=== PATIENT | male | born 1985 | race Native Hawaiian/Other Pacific Islander ===

== ENCOUNTER 2023-08-02 10:05 | Outpatient (AMB) | payer OTHER, SELFPAY ==
--- NOTE | 2023-08-02 10:07 | A.OFFPC_ITS ---
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 Intake Note: Pt is here to est care Allergies penicillin V Allergy (Unknown, Verified 08/02/23 10:28) Unknown Penicillins [PENICILLINS] Allergy (Unknown, Unverified 08/02/23 10:28) ANAPHYLAXIS bees Allergy (Unknown, Uncoded 08/02/23 10:12) Anaphylaxis Medication List - Last Reconciled 08/02/23 by JAZ Mckinley No Known Home Meds Tobacco use date assessed: 08/02/23 Dental Screening Dental Screen Date: 08/02/23 Did you have a dental visit in the last 12 months?: No Did you have a dental problem in the last 6 months where you did not have access to dental care?: No Was dental information given to patient?: No HPI HPI Comments History of Present Illness Details Patient is a 38-year-old male who I am meeting for the 1st time in for a physical exam. He has a past medical history significant for reactive airway disease, in seasonal allergies. The patient states he has not seen a primary care provider in over 7 years. He is unsure if he is up-to-date on his tetanus booster, will try to obtain records from previous office visits. Will order fasting labs. Patient has a chief complaint of fungal infection on his bilateral feet. Has not tried any medication for this. He has tried using non medicated lotion. He states this problem started about 6 months prior and has gotten progressively worse over time, his main concern is itchiness. Denies bleeding, numbness or tingling. PFSH Family History (Updated 08/02/23 @ 10:40 by JAZ Mckinley) Mother Myocardial infarction Social History Housing: Apartment Patient Tobacco Use Status: Never used Tobacco e-Cigarette/Vaping Use: Currently Using (sometimes ) Second Hand Smoke Exposure: No service: No Current occupational status: unemployed Vision needs: Yes Questionnaire PHQ-9 Over the last 2 weeks, how often have you been bothered by any of the following problems? 1. Little interest or pleasure in doing things: not at all 2. Feeling down, depressed, or hopeless: not at all 3. Trouble falling or staying asleep, or sleeping too much: several days 4. Feeling tired or having little energy: several days 5. Poor appetite or overeating: not at all 6. Feeling bad about yourself - or that you are a failure or have let yourself or your family down: several days 7. Trouble concentrating on things, such as reading the newspaper or watching television: not at all 8. Moving or speaking so slowly that other people could have noticed. Or the opposite - being so fidgety or restless that you have been moving around a lot more than usual: not at all 9. Thoughts that you would be better off or of hurting yourself in some way: not at all Total score: 3 Depression Screening Interpretation: Negative Depression Screening Done: Yes 42720 - PHQ-9 Billing: Yes Source: Developed by Drs. Walker Patel, Beverly Welch, Sebastián Hines and colleagues, with an educational fredo from [employer]. Thrive Questionnaire Date Thrive assessed: 08/02/23 I am a: Patient What is your living situation today?: I have a steady place to live Within the past 12 months, did the food you bought not last and you didn't have the money to get more?: Never true Within the past 12 months, did you worry whether your food would run out before you got money to buy more?: Never true Do you have trouble paying for medicines?: Yes Do you have trouble getting transportation to medical appointments?: No Do you have trouble paying your heating and electricity bill?: No Do you have trouble taking care of your child, family member or friend?: No Do you have trouble with day-to-day activities such as bathing, preparing meals, shopping, managing finances, etc.?: No Are you currently unemployed and looking for a job?: Yes Are you interested in more education?: Yes THRIVE Score: 0 AUDIT C Alcohol Use Questionnaire (AUDIT-C) 1. How often do you have a drink containing alcohol?: Monthly or less 2. How many drinks containing alcohol do you have on a typical day when you are drinking?: 3 or 4 3. How often do you have six or more drinks on one occasion?: Never Total Score: 2 TRESSA-7 AMB Questionnaire TRESSA-7 Date TRESSA - 7 assessed: 08/02/23 Feeling nervous, anxious, or on edge: 0 = Not at all Not being able to stop or control worryin = Several days Worrying too much about different things: 0 = Not at all Trouble relaxin = Not at all Being so restless that it is hard to sit still: 0 = Not at all Becoming easily annoyed or irritable: 1 = Several days Feeling afraid as if something awful might happen: 0 = Not at all Total TRESSA-7 score (0-4 normal; 5-9 mild; 10-14 moderate; 15-21 severe): 2 Source: Developed by Drs. Walker Patel, Beverly Welch, Sebastián Hines and colleagues, with an educational fredo from [employer]. TRESSA-7 Assessment Billing TRESSA-7 Assessment Tool: TRESSA-7 Assessment 42409 Review of Systems Const Details: Constitutional : No Weight loss, No Fever, No Chills, No Fatigue, No Malaise ENT/Mouth : No sore throat, No Rhinorrhea Eyes: No Eye Pain, No Swelling, No Redness Cardiovascular : No Chest Pain, No SOB, No Dyspnea on Exertion, No Orthopnea, No Edema, No Palpitations Respiratory : No Cough, No Sputum, Admits intermittent Wheezing Gastrointestinal : No Nausea, No Vomiting, No Diarrhea, No Constipation, No abdominal Pain, No Hematochezia, No Melena Genitourinary : No Dysuria, No Urinary Frequency, No Hematuria, Musculoskeletal : No joint pain, No Myalgias, No Joint Swelling Skin : Admits dry skin on bilateral feet and yellow toenails. Neuro : No Weakness, No Numbness, No Dizziness, No Headache Psych : No Anxiety/Panic, No Depression Heme/Lymph: No Bruising, No Bleeding,No Lymphadenopathy Endocrine : No Polyuria, No Polydipsia All other systems reviewed and are negative Physical exam (Primary Care) Vital Signs: Last Vital Signs Pulse 89 08/02/23 10:11 BP 120/78 08/02/23 10:11 Pulse Ox 99 08/02/23 10:11 Oxygen Delivery Method Room Air 08/02/23 10:11 Care Plan Goal for BP management: Vitals reviewed and stable BMI result Body Mass Index 41.1 Tobacco/Smoking Status: Tobacco use Status Tobacco use date assessed 08/02/23 08/02/23 10:18 Patient Tobacco Use Status Never used Tobacco 08/02/23 10:18 e-Cigarette/Vaping Use Currently Using (sometimes ) 08/02/23 10:18 Depression Screening Interpretation: Negative Const Other: Appearance: Alert.? Oriented X3.? No acute distress.? Head: Normocephalic, atraumatic. Eyes: Pupils equal, round and reactive to light.? ENT: Pharynx normal.?TM intact and pearly reynolds. Neck: Normal inspection.? Neck supple.?Full ROM. CVS: Normal heart rate and rhythm.? Pulses normal.? Respiratory: No respiratory distress.? Breath sounds normal.? Abdomen: Soft and nontender.? Skin: Dry cracked skin on bialteral feet. +onychomycosis. Extremities: No lower extremity edema.? No calf ttp. 5/5 strength to bilateral upper and lower extremities Back: No midline tenderness, no C-spine tenderness, full range of motion, no CVA tenderness bilaterally Neuro: Oriented X 3.? No motor deficit.? No sensory deficit. CN 2-12 intact Assessment and Plan Assessment & Plan (1) Encounter for routine adult physical exam with abnormal findings: Code(s): Z00.01 - Encounter for general adult medical examination with abnormal findings Plan: Will draw fasting labs. Patient will look at previous medical records to determine status of TD booster. (2) Athletes foot: Comment: Will order fungal cream. Patient will also have podiatry referral Code(s): B35.3 - Tinea pedis Qualifiers: Laterality: bilateral Qualified Code(s): B35.3 - Tinea pedis (3) Reactive airway disease: Comment: Patient has used Xopenex inhaler in the past with good success. Will order. Will also order cetirizine. Code(s): J45.909 - Unspecified asthma, uncomplicated Qualifiers: Asthma persistence: unspecified Asthma severity: mild Qualified Code(s): J45.909 - Unspecified asthma, uncomplicated (4) Onychomycosis: Comment: Will refer to Podiatry. Code(s): B35.1 - Tinea unguium Plan: Take your medications as prescribed. If you were prescribed antibiotics today, it is important that you take your medication to their entirety, do not skip any doses, do not finish them early. Follow-up with your primary care provider this week. Return to the emergency department with new or worsening symptoms. Such as fevers, chills, chest pain, shortness of breath, nausea, vomiting, dizziness, headache, vision changes, lethargy In case of emergency call 911 Plan Follow-up in 3 months. Orders: Orders Hemoglobin A1c Today Z13.1 - Encounter for screening for diabetes mellitus Vitamin D 25-OH (D2 and D3) Today Z13.21 - Encounter for screening for nutritional disorder Vitamin B6 Today Z13.21 - Encounter for screening for nutritional disorder Complete Blood Count Auto Diff Today Z13.0 - Encounter for screening for diseases of the blood and blood-forming organs and certain disorders involving the immune mechanism Vitamin B12 Today Z13.21 - Encounter for screening for nutritional disorder UA CC w/rflx Micro + Cult Today Z13.89 - Encounter for screening for other disorder TSH reflex Free T4 Today Z13.29 - Encounter for screening for other suspected endocrine disorder Lipid Panel Today Z13.220 - Encounter for screening for lipoid disorders Comprehensive Met. Panel Today Z91.89 - Other specified personal risk factors, not elsewhere classified Referrals Podiatry Referral B35.1 - Tinea unguium Medications: New levalbuterol tartrate 45 mcg/actuation (Xopenex HFA) 2 puffs inhalation Q4-6H PRN 15 grams 0RF shortness of breath fluticasone propionate 50 mcg/actuation (Allergy Relief (fluticasone)) administer into each nostril 2 sprays intranasal DAILY 16 grams 0RF clotrimazole 1% 1 appl topical BID 4 weeks 15 grams 0RF cetirizine (All Day Allergy (cetirizine)) 10 mg PO DAILY 90 tabs 0RF Review Declined TDap/Td: 08/02/23 Coding Level of Care Code New Pt Prev Care 18-39yr([id number] Diagnoses Encounter for routine adult physical exam with abnormal findings Z00.01 Tinea pedis of both feet B35.3 Laterality: bilateral Mild reactive airways disease, unspecified whether persistent J45.909 Asthma persistence: unspecified Asthma severity: mild Onychomycosis B35.1 Additional Codes TRESSA-7 Assessment Billing - TRESSA-7 Assessment Tool: TRESSA-7 Assessment [id number] ([id number]) Time Spent (min) 36
[2023-08-02 10:11] VITALS: BP 120/78; PULSE 89; O2SAT 99; BMI 41.1
== END 2023-08-02 12:05 | disposition home or self-care (01) ==
PROVIDERS: Visit Provider Nurse Practitioner Primary Care
DX: Z00.01 Encounter for general adult medical examination with abnormal findings (principal); B35.3 Tinea pedis; J45.909 Unspecified asthma, uncomplicated; B35.1 Tinea unguium
CPT/HCPCS: 99213; 99385

== ENCOUNTER 2023-08-02 10:58 | Outpatient (REF) | payer OTHER, SELFPAY ==
[2023-08-02 13:54] LABS: Appearance Urine Turbid; Color Urine Yellow; Glucose Urine UA Negative (Negative); Leukocyte Esterase Urine Negative (Negative); Nitrite Urine Negative (Negative); PH 5.5 (5.0-9.0); Specific Gravity - Urine >= 1.030 (1.005-1.025); Urine Blood Negative (Negative); Urine Ketones Negative (Negative); Urine Protein Negative (Neg-Trace)
[2023-08-02 13:55] LABS: MANUAL DIFF FLAG NO
[2023-08-02 14:00] LABS: Basophils Absolute Auto 0.1 X10*3/uL (0.0-0.2); Basophils Percent Auto 0.7 % (0-2); Eosinophils Absolute Auto 0.1 X10*3/uL (0.0-0.4); Hematocrit 47.2 % (42.0-52.0); Hemoglobin 15.1 g/dl (14.0-18.0); Imm Gran Abs Auto 0.02 X10*3/uL (0.00-0.03); Imm Gran Pct Auto 0.3 % (0.0-0.4); Lymphocytes Absolute Auto 2.4 X10*3/uL (1.2-4.9); Lymphocytes Percent Auto 33.7 % (20-40); Mean Corpuscular Volume 84.3 fL (80.0-98.0); Mean Platelet Volume 9.9 fL (9.4-12.4); Monocytes Absolute Auto 0.5 X10*3/uL (0.1-1.2); Monocytes Percent Auto 7.2 % (2-11); Neutrophils Percent Auto 56.1 % (45-73); Platelet Count 422 X10*3/uL (160-400); Red Cell Distribution Width 13.5 % (11.0-16.0); White Blood Count 7.1 X10*3/uL (4.8-10.8)
[2023-08-02 14:12] LABS: Estimated Average Glucose 94 mg/dL; Hemoglobin A1c % 4.9 % (<6.0)
[2023-08-02 14:17] LABS: Alanine Aminotransferase 57 U/L (0-40); Albumin Level 4.6 g/dL (3.5-5.0); Alkaline Phosphatase 136 U/L (39-117); Anion Gap 14 (12-20); Aspartate Amino Transferase 32 U/L (5-37); Bilirubin Total 0.5 mg/dL (0.0-1.0); Blood Urea Nitrogen 11 mg/dL (9-16); Calcium 9.5 mg/dL (8.4-10.2); Carbon Dioxide 24 mmol/L (22-29); Chloride 106 mmol/L (96-108); Cholesterol 165 mg/dL (<200); Estimated Glomerular Filt Rate > 60; Glucose Random 92 mg/dL (60-115); HDL Cholesterol 39 mg/dL (>40); LDL Cholesterol Calculated 109 mg/dL (<100); Potassium 3.6 mmol/L (3.3-5.1); Sodium 140 mmol/L (135-145); Total Protein 8.2 g/dL (6.5-8.0); Triglycerides 88 mg/dL (<150)
[2023-08-02 14:32] LABS: TSH reflex Free T4 0.99 uIU/mL (0.32-4.0)
[2023-08-02 14:37] LABS: Vitamin B12 586 pg/mL (200-900)
[2023-08-06 10:43] LABS: Vitamin D 25-OH, D2 <4 ng/mL; Vitamin D 25-OH, D3 13 ng/mL; Vitamin D 25-OH, Total 13 ng/mL (30-100)
[2023-08-06 14:08] LABS: Vitamin B6 12.1 ng/mL (2.1-21.7)
== END 2023-08-02 10:59 | disposition home or self-care (01) ==
LOC: HO.HMGCLDS 10:58
PROVIDERS: PCP Nurse Practitioner Primary Care; Visit Provider Nurse Practitioner Primary Care
DX: Z13.0 Encounter for screening for diseases of the blood and blood-forming organs and certain disorders involving the immune mechanism (principal); Z13.21 Encounter for screening for nutritional disorder; Z13.29 Encounter for screening for other suspected endocrine disorder; Z13.220 Encounter for screening for lipoid disorders; Z13.89 Encounter for screening for other disorder; Z91.89 Other specified personal risk factors, not elsewhere classified; I10 Essential (primary) hypertension
CPT/HCPCS: 36415; 80053; 80061; 81003; 82306; 82607; 83036; 84207; 84443; 85025

== ENCOUNTER 2023-11-17 13:51 | Outpatient (REF) | payer OTHER, SELFPAY ==
[2023-11-17 16:01] LABS: MANUAL DIFF FLAG NO
[2023-11-17 16:09] LABS: Basophils Absolute Auto 0.1 X10*3/uL (0.0-0.2); Basophils Percent Auto 0.8 % (0-2); Eosinophils Absolute Auto 0.2 X10*3/uL (0.0-0.4); Eosinophils Percent Auto 2.6 % (0-4); Hematocrit 46.3 % (42.0-52.0); Hemoglobin 14.9 g/dl (14.0-18.0); Imm Gran Abs Auto 0.03 X10*3/uL (0.00-0.03); Imm Gran Pct Auto 0.4 % (0.0-0.4); Lymphocytes Absolute Auto 2.4 X10*3/uL (1.2-4.9); Lymphocytes Percent Auto 30.5 % (20-40); Mean Corpuscular HGB Conc 32.2 g/dl (31.0-36.0); Mean Corpuscular Hemoglobin 27.1 pg (27.0-33.0); Mean Corpuscular Volume 84.3 fL (80.0-98.0); Mean Platelet Volume 9.8 fL (9.4-12.4); Monocytes Absolute Auto 0.6 X10*3/uL (0.1-1.2); Neutrophils Absolute Auto 4.7 x10*3/uL (2.0-8.3); Neutrophils Percent Auto 58.7 % (45-73); Platelet Count 402 X10*3/uL (160-400); Red Blood Count 5.49 X10*6/uL (4.60-5.80); Red Cell Distribution Width 13.3 % (11.0-16.0)
[2023-11-17 16:26] LABS: Alanine Aminotransferase 26 U/L (0-40); Alkaline Phosphatase 121 U/L (39-117); Anion Gap 17 (12-20); Aspartate Amino Transferase 24 U/L (5-37); Bilirubin Total 0.5 mg/dL (0.0-1.0); Blood Urea Nitrogen 14 mg/dL (9-16); Carbon Dioxide 23 mmol/L (22-29); Chloride 106 mmol/L (96-108); Cholesterol 151 mg/dL (<200); Estimated Glomerular Filt Rate > 60; Glucose Random 84 mg/dL (60-115); HDL Cholesterol 35 mg/dL (>40); LDL Cholesterol Calculated 104 mg/dL (<100); Potassium 4.4 mmol/L (3.3-5.1); Sodium 142 mmol/L (135-145); Total Protein 8.2 g/dL (6.5-8.0); Triglycerides 62 mg/dL (<150)
[2023-11-21 17:13] LABS: Vitamin D 25-OH, D2 <4 ng/mL; Vitamin D 25-OH, D3 39 ng/mL; Vitamin D 25-OH, Total 39 ng/mL (30-100)
== END 2023-11-17 13:52 | disposition home or self-care (01) ==
LOC: HO.HMGCLDS 13:51
PROVIDERS: Visit Provider Nurse Practitioner Primary Care
DX: Z13.0 Encounter for screening for diseases of the blood and blood-forming organs and certain disorders involving the immune mechanism (principal); Z13.220 Encounter for screening for lipoid disorders; Z91.89 Other specified personal risk factors, not elsewhere classified; Z13.21 Encounter for screening for nutritional disorder
CPT/HCPCS: 36415; 80053; 80061; 82306; 85025

== ENCOUNTER 2023-11-17 17:52 | Outpatient (AMB) | payer OTHER, SELFPAY ==
[2023-11-17 13:21] VITALS: BP 122/74; PULSE 78; O2SAT 98; BMI 35.9
--- NOTE | 2023-11-17 13:23 | MHC.PC.OV ---
Vital Signs 11/17/23 13:21 Height 5 ft 4 in Weight 209 lb 4 oz BMI 35.9 BP 122/74 Blood Pressure Location Rt brachial Position Sitting Pulse 78 Pulse Source Pulse Oximeter Pulse Oximetry (%) 98 Intake Visit Reasons: 4 month follow up Medication Intake Note: pt is here for 4 month follow up Allergies penicillin V Allergy (Unknown, Verified 11/17/23 13:27) Unknown Penicillins [PENICILLINS] Allergy (Unknown, Verified 11/17/23 13:27) ANAPHYLAXIS bees Allergy (Unknown, Uncoded 08/02/23 10:12) Anaphylaxis Tobacco use date assessed: 08/02/23 Dental Screening Dental Screen Date: 08/02/23 HPI HPI Comments History of Present Illness Details Patient is a 38-year-old male in today for follow-up on vitamin-D deficiency. He has been utilizing vitamin D3 2000 units for the past 3 months, will redraw today. Will also redraw CBC and CMP and lipid panel. Patient has been exercising 5 days a week and has been improving his diet. Has lost 30 lbs over the past 4 months. [facility] Surgical History No pertinent past surgical history Family History Mother Myocardial infarction Social History Housing: Apartment Patient Tobacco Use Status: Never used Tobacco e-Cigarette/Vaping Use: Currently Using (sometimes ) Second Hand Smoke Exposure: No service: No Current occupational status: unemployed Vision needs: Yes Questionnaire Thrive Questionnaire Date Thrive assessed: 08/02/23 TRESSA-7 AMB Questionnaire TRESSA-7 Date TRESSA - 7 assessed: 08/02/23 Source: Developed by Drs. Walker Patel, Beverly Welch, Sebastián Hines and colleagues, with an educational fredo from [employer]. Review of Systems Const All systems reviewed & are unremarkable except as noted in HPI and below Physical exam (Primary Care) Tobacco/Smoking Status: Tobacco use Status Tobacco use date assessed 08/02/23 08/02/23 10:18 Patient Tobacco Use Status Never used Tobacco 08/02/23 10:18 e-Cigarette/Vaping Use Currently Using 08/02/23 10:18 Thrive Assessment: Date of Thrive Assessment Date Thrive assessed 08/02/23 08/02/23 10:56 Const Other: Appearance: Alert.? Oriented X3.? No acute distress.? Head: Normocephalic, atraumatic, no step-offs or deformities CVS: Normal heart rate and rhythm.? Pulses normal.? Respiratory: No respiratory distress.? Breath sounds normal.? Abdomen: Soft and nontender.? Skin: Normal skin color.? Normal skin turgor.?+Dry cracking skin on bilateral feet. Yellowing and thickening of toenails bilaterally. Neuro: Oriented X 3.? No motor deficit.? No sensory deficit. CN 2-12 intact Results Reviewed Results Reviewed: Sodium 140 135-145 mmol/L Potassium 3.6 3.3-5.1 mmol/L CL 106 96-108 mmol/L CO2 24 22-29 mmol/L Gap 14 12-20 BUN 11 9-16 mg/dL Creat 0.86 0.5-1.4 mg/dL EGFR > 60 NOTE: For -Citizen Of [place] individuals, multiply the result by 1.210. Chronic Kidney Disease: Estimated GFR < 60 mL/min/1.73m2 Severe Kidney Disease: Estimated GFR < 15 mL/min/1.73m2 Glucose, Random 92 60-115 mg/dL CA 9.5 8.4-10.2 mg/dL Total Bili 0.5 0.0-1.0 mg/dL AST (GOT) 32 5-37 U/L ALT (GPT) 57 H 0-40 U/L Protein, Total 8.2 H 6.5-8.0 g/dL Alb 4.6 3.5-5.0 g/dL Triglyceride 88 <150 mg/dL Desirable Triglyceride: less than 150 mg/dL Borderline High Triglyceride 150-199 mg/dL High Triglyceride: 200-499 mg/dL Very High Triglyceride: greater than or equal to 5OO mg/dL Cholesterol 165 <200 mg/dL Desirable Cholesterol: less than 200 mg/dL Borderline High Cholesterol: 200-239 mg/dL High Cholesterol: greater than 239 mg/dL LDL Calculated 109 H <100 mg/dL Desirable LDL: less than 100 mg/dL Near Optimal/Above Optimal LDL: 110-129 mg/dL Borderline High LDL: 130-159 mg/dL High LDL: 160-189 mg/dL Very High LDL: greater than or equal to 190 mg/dL HDL 39 L >40 mg/dL Desirable HDL: greater than 40 mg/dL Note: This HDL assay may give artificially low results in patients with liver disease. Alk Phos 136 H 39-117 U/L TSH 0.99 0.32-4.0 uIU/mL Assessment and Plan Assessment & Plan (1) Hyperlipidemia: Comment: patient has been dieting and exercising. Will redraw lipid panel. Code(s): E78.5 - Hyperlipidemia, unspecified Qualifiers: Hyperlipidemia type: unspecified Qualified Code(s): E78.5 - Hyperlipidemia, unspecified (2) Vitamin D deficiency: Comment: Has been utilizing 4000 units vitamin D3 every other day. Will redraw. Code(s): E55.9 - Vitamin D deficiency, unspecified (3) Athletes foot: Comment: Will order fungal cream. Patient will also have podiatry referral Code(s): B35.3 - Tinea pedis Qualifiers: Laterality: bilateral Qualified Code(s): B35.3 - Tinea pedis Plan: will follow up with lab results. Orders: Orders Vitamin D 25-OH (D2 and D3) Today Z13.21 - Encounter for screening for nutritional disorder Complete Blood Count Auto Diff Today Z13.0 - Encounter for screening for diseases of the blood and blood-forming organs and certain disorders involving the immune mechanism Comprehensive Met. Panel Today Z91.89 - Other specified personal risk factors, not elsewhere classified Lipid Panel Today Z13.220 - Encounter for screening for lipoid disorders Medications: Refilled clotrimazole 1% 1 appl topical BID 4 weeks 45 grams 0RF Coding Level of Care Code Est Pt Level 3 (80194) Diagnoses Hyperlipidemia, unspecified hyperlipidemia type E78.5 Hyperlipidemia type: unspecified Vitamin D deficiency E55.9 Tinea pedis of both feet B35.3 Laterality: bilateral Time Spent (min) 25
== END 2023-11-17 17:53 | disposition home or self-care (01) ==
PROVIDERS: PCP Nurse Practitioner Primary Care; Visit Provider Nurse Practitioner Primary Care
DX: E78.5 Hyperlipidemia, unspecified (principal); E55.9 Vitamin D deficiency, unspecified; B35.3 Tinea pedis
CPT/HCPCS: 99213

== ENCOUNTER 2023-12-14 15:26 | Outpatient (AMB) | payer OTHER, SELFPAY ==
[2023-12-14 15:37] VITALS: BP 116/72; PULSE 70; TEMP 37.1; O2SAT 98; BMI 35.9
--- NOTE | 2023-12-14 15:37 | AM.OFFWIN_ITS ---
Intake Vital Signs 12/14/23 15:37 Height 5 ft 4 in Weight 209 lb BMI 35.9 BP 116/72 Blood Pressure Location Lt brachial Position Sitting Pulse 70 Pulse Source Pulse Oximeter Temp 98.7 F Temp Source Oral Pulse Oximetry (%) 98 Oxygen Delivery Method Room Air Intake Visit Reasons: EP Throat pain Intake Note: pt c/o sore throat and sinus congestion. Started 6 days ago Patient Tobacco Use Status: Never used Tobacco Allergies penicillin V Allergy (Unknown, Verified 12/14/23 15:37) Unknown Penicillins [PENICILLINS] Allergy (Unknown, Verified 12/14/23 15:37) ANAPHYLAXIS bees Allergy (Unknown, Uncoded 12/14/23 15:37) Anaphylaxis Do you need a note to return to daycare/school/sports/work: No HPI HPI Comments History of Present Illness Details 38 y/o male patient who presents to the walk in clinic with c/o Sore- throat and nasal/sinus congestion x 6 days. Pt has allergic rhinitis and uses Flonase and Claritin. Denies fevers, chills, nausea or vomiting. Denies cough, SOB or CP. PFSH Surgical History No pertinent past surgical history Family History Mother Myocardial infarction Social History Housing: Apartment Patient Tobacco Use Status: Never used Tobacco e-Cigarette/Vaping Use: Currently Using (sometimes ) Second Hand Smoke Exposure: No service: No Current occupational status: unemployed Vision needs: Yes Review of Systems Const All systems reviewed & are unremarkable except as noted in HPI and below Physical Exam Vital Signs: Last Vital Signs Temp 98.7 F 12/14/23 15:37 Pulse 70 12/14/23 15:37 BP 116/72 12/14/23 15:37 Pulse Ox 98 12/14/23 15:37 Oxygen Delivery Method Room Air 12/14/23 15:37 BMI result Body Mass Index 35.9 Const General: comfortable and no acute distress Nutritional Appearance: obese Orientation/consciousness: patient oriented x3 HEENT Head: Yes normocephalic Ears: external ears normal and TM abnormal bulging and with fluid behind the TM bilateral; not bullous, not dull, not with effusion, not perforated and not retracted General nose exam: Normal nasal mucous membranes and turbinates present Face and sinus: Yes sinuses nontender Mouth: moist mucous membranes Throat: Yes postnasal drainage Resp Effort & Inspection: normal respiratory effort and able to speak in complete sentences Auscultation: clear to auscultation bilaterally, no crackles, no rales, no rhonchi and no wheezes Cardio Heart sounds: S1 normal heart sound present and S2 normal heart sound present Neuro General: patient oriented x3 Results AMB Rapid Strep AMB Rapid Strep Negative Last Edit by Vazquez Erickson CMA on 12/14/23 15:49 Results Reviewed Results Reviewed: Laboratory Last Values Strep Scn Rapid Clinic Negative 12/14/23 15:44 Assessment & Plan Assessment & Plan (1) Acute pharyngitis: Code(s): J02.9 - Acute pharyngitis, unspecified Qualifiers: Pharyngitis/tonsillitis etiology: unspecified etiology Qualified Code(s): J02.9 - Acute pharyngitis, unspecified Plan: Continue on Cetirizine BID Continue on Flonase BID OTC sore-throat remedies Warm fluids with honey. Acetaminophen for pain relief. Orders: Orders AMB Rapid Strep Screen Today Z13.9 - Encounter for screening, unspecified Coding Level of Care Code Est Pt Level 3 (28772) Diagnoses Acute pharyngitis, unspecified etiology J02.9 Pharyngitis/tonsillitis etiology: unspecified etiology Time Spent (min) 15
== END 2023-12-14 16:28 | disposition home or self-care (01) ==
PROVIDERS: PCP Nurse Practitioner Primary Care; Visit Provider Nurse Practitioner Family
DX: Z13.9 Encounter for screening, unspecified (principal); J02.9 Acute pharyngitis, unspecified
CPT/HCPCS: 87880; 99213

== ENCOUNTER 2024-02-10 13:42 | Outpatient (AMB) | payer OTHER, SELFPAY ==
--- NOTE | 2024-02-10 13:56 | MHC.OFFWIV ---
Intake Vital Signs 02/10/24 13:57 Height 5 ft 4 in Weight 206 lb BMI 35.4 BP 114/72 Blood Pressure Location Rt brachial Position Sitting Pulse 76 Pulse Source Pulse Oximeter Temp 98.5 F Temp Source Oral Pulse Oximetry (%) 98 Oxygen Delivery Method Room Air Intake Visit Reasons: EP Sore throat coughing up green phlegm Intake Note: Patient here for coughing up phlegm and sore throat which started yesterday. Patient Tobacco Use Status: Never used Tobacco Allergies penicillin V Allergy (Unknown, Verified 02/10/24 13:58) Unknown Penicillins [PENICILLINS] Allergy (Unknown, Verified 02/10/24 13:58) ANAPHYLAXIS bees Allergy (Unknown, Uncoded 02/10/24 13:58) Anaphylaxis Do you need a note to return to daycare/school/sports/work: No HPI HPI Comments History of Present Illness Details Patient is a 39-year-old male complaining of 2 days of a productive cough with green sputum. He also is complaining of a little bit of a sore throat but denies any fevers, head congestion, headaches, sinus pain, ear pain or shortness of breath. He denies a history of COPD or asthma. He has not taken any medications to try to help himself feel better. He denies any sick contacts. He states he did not test for COVID at home. [facility] Surgical History No pertinent past surgical history Family History Mother Myocardial infarction Social History Housing: Apartment Patient Tobacco Use Status: Never used Tobacco e-Cigarette/Vaping Use: Currently Using (sometimes ) Second Hand Smoke Exposure: No service: No Current occupational status: unemployed Vision needs: Yes Review of Systems Const All systems reviewed & are unremarkable except as noted in HPI and below Physical Exam Vital Signs: Last Vital Signs Temp 98.5 F 02/10/24 13:57 Pulse 76 02/10/24 13:57 BP 114/72 02/10/24 13:57 Pulse Ox 98 02/10/24 13:57 Oxygen Delivery Method Room Air 10/03/24 13:57 BMI result Body Mass Index 35.4 Const General: cooperative, healthy appearing, comfortable and no acute distress Orientation/consciousness: patient oriented x3 Limitations: no limitations HEENT Head: Yes normal to inspection Ears: hearing grossly normal bilaterally, external ears normal and TM's normal bilaterally General nose exam: Normal external nose present, Normal nares present and No nasal discharge present Face and sinus: Yes normal facial exam and Yes sinuses nontender Mouth: Normal oral and palatal mucosa present and moist mucous membranes Throat: Yes tonsils normal, Yes uvula midline and Yes posterior oropharynx abnormal (Erythema) Eyes General: appearance normal, both eyes and all related structures Neck Neck: Yes normal visual inspection Resp Effort & Inspection: normal respiratory effort, able to speak in complete sentences, no respiratory distress, not tachypneic, no tripod positioning and no use of accessory muscles Auscultation: clear to auscultation bilaterally Cardio Rate: regular rate Rhythm: regular rhythm Heart sounds: normal S1 and S2 Skin General skin exam: no rashes or lesions noted Neuro General: patient oriented x3 Extrem General: Yes normal to inspection and Yes no clubbing, cyanosis or edema Results AMB Rapid Strep AMB Rapid Strep Negative Last Edit by FAIZA Ye on 02/10/24 14:34 Results Reviewed Results Reviewed: Laboratory Last Values Strep Scn Rapid [facility] Negative 02/10/24 14:34 Assessment & Plan Assessment & Plan (1) URI (upper respiratory infection): Code(s): J06.9 - Acute upper respiratory infection, unspecified Plan: Vital signs are stable and patient is well-appearing, lung sounds are clear, sent flu COVID and RSV testing, rapid strep in office was negative. Recommended patient treat himself with [id number] medications to treat his symptoms. Plan See above Orders: Orders AMB Rapid Strep Screen Today Z13.9 - Encounter for screening, unspecified Coding Level of Care Code Est Pt Level 3 (62893) Diagnoses URI (upper respiratory infection) J06.9
[2024-02-10 13:57] VITALS: BP 114/72; PULSE 76; TEMP 36.9; O2SAT 98; BMI 35.4
== END 2024-02-10 14:41 | disposition home or self-care (01) ==
PROVIDERS: PCP Nurse Practitioner Primary Care; Visit Provider Physician Assistant
DX: J06.9 Acute upper respiratory infection, unspecified (principal); Z13.9 Encounter for screening, unspecified

== ENCOUNTER 2024-02-10 13:42 | Outpatient (REF) | payer OTHER, SELFPAY ==
[2024-02-10 17:10] LABS: Influenza A PCR NEGATIVE (Negative); Influenza B PCR NEGATIVE (Negative); Resp Syncy Virus RNA Qual PCR NEGATIVE (Negative); SARS COV2 PCR INHOUSE NEGATIVE (Negative)
== END 2024-02-10 13:43 | disposition home or self-care (01) ==
LOC: HO.LAB 13:42
PROVIDERS: PCP Nurse Practitioner Primary Care; Visit Provider Physician Assistant
DX: R06.9 Unspecified abnormalities of breathing (principal)
CPT/HCPCS: 0241U; 87880; 99212

== ENCOUNTER 2024-05-31 11:11 | Outpatient (REF) | payer OTHER, SELFPAY ==
[2024-05-31 17:50] LABS: Influenza A PCR NEGATIVE (Negative); Influenza B PCR NEGATIVE (Negative); Resp Syncy Virus RNA Qual PCR POSITIVE (Negative); SARS COV2 PCR INHOUSE NEGATIVE (Negative)
== END 2024-05-31 11:12 | disposition home or self-care (01) ==
LOC: HO.LAB 11:11
PROVIDERS: Physician Assistant
DX: J06.9 Acute upper respiratory infection, unspecified (principal); J45.909 Unspecified asthma, uncomplicated
CPT/HCPCS: 0241U; 99212

== ENCOUNTER 2024-05-31 11:11 | Outpatient (AMB) | payer OTHER, SELFPAY ==
--- NOTE | 2024-05-31 13:06 | AM.OFFWIN_ITS ---
Intake Vital Signs 05/31/24 13:15 Weight 202 lb BP 122/80 Blood Pressure Location Lt brachial Position Sitting Pulse 66 Pulse Source Pulse Oximeter Temp 98.0 F Temp Source Oral Pulse Oximetry (%) 98 Oxygen Delivery Method Room Air Intake Visit Reasons: EP-cold symptoms [phone] Intake Note: pt is here for sinus congestion, cough, Sob at night which has been present for about 1 week. Patient Tobacco Use Status: Never used Tobacco Allergies penicillin V Allergy (Unknown, Verified 05/31/24 13:07) Unknown Penicillins [PENICILLINS] Allergy (Unknown, Verified 05/31/24 13:07) ANAPHYLAXIS bees Allergy (Unknown, Uncoded 05/31/24 13:07) Anaphylaxis Do you need a note to return to daycare/school/sports/work: No HPI HPI Comments History of Present Illness Details History - The patient is a 39-year-old male pres enting with recent onset respiratory symptoms, which started approximately one week ago, characterized by congestion, wheezing, and a feeling of fullness in the ears. - Symptoms included occasional shortness of breath at night or upon waking, but no fever or chronic sinus pain. - He has a history of asthma, typically managed with a rescue inhaler, which isn't regularly used. - An unspecified [id number] Flu me dication was taken five to six days ago without mentioned definite relief. - Recent travel history includes returni ng from the [facility] a week ago, with no major new exposures since returning. - Significant weight loss from 250 lbs t o 201-202 lbs was noted, unrelated to the recent symptoms. Physical Exam General: Cooperative, healthy appearing, comfortable and no acute distress Orientation/consciousness: Patient oriented x3 Limitations: No limitations Head: Normal to inspection Ears: Fluid present in ears Nose: Normal external nose present, Normal nares present and No nasal discharge present Face and sinus: Normal facial exam and Yes sinuses nontender Mouth: Normal oral and palatal mucosa present and moist mucous membranes Throat: Yes tonsils normal, Yes uvula midline. Posterior oropharynx erythema Eyes: Appearance normal, both eyes and all related structures Neck: Normal visual inspection Respiratory: Clear to auscultation bilaterally. Normal respiratory effort, able to speak in complete sentences, Actively coughing, no respiratory distress, not tachypneic, no tripod positioning and no use of accessory muscles Cardiovascular: Regular rate and rhythm. Normal S1 and S2 Skin: No rashes or lesions noted Neuro: Patient oriented x3 Extremities: Normal to inspection and Yes no clubbing, cyanosis or edema PFSH Surgical History No pertinent past surgical history Family History Mother Myocardial infarction Social History Housing: Apartment Patient Tobacco Use Status: Never used Tobacco e-Cigarette/Vaping Use: Currently Using Second Hand Smoke Exposure: No service: No Current occupational status: unemployed Vision needs: Yes Review of Systems Const All systems reviewed & are unremarkable except as noted in HPI and below Physical Exam Vital Signs: Last Vital Signs Temp 98.0 F 05/31/24 13:15 Pulse 66 05/31/24 13:15 BP 122/80 05/31/24 13:15 Pulse Ox 98 05/31/24 13:15 Oxygen Delivery Method Room Air 05/31/24 13:15 Assessment & Plan Assessment & Plan (1) URI (upper respiratory infection): Code(s): J06.9 - Acute upper respiratory infection, unspecified Qualifiers: URI type: unspecified viral URI Qualified Code(s): J06.9 - Acute upper respiratory infection, unspecified Plan: Plan The current symptoms are consistent with a viral upper respiratory infection, likely worsened by existing asthma. To manage congestion and postnasal drip, the patient should continue using Flonase, with a refill provided. The patient has been advised to use the asthma rescue inhaler as needed, and cetirizine will be refilled for allergic symptoms. Testing was conducted to rule out influenza, COVID-19, and RSV. The correct use of Flonase was reviewed to maximize effectiveness, along with the recommendation of using a neti pot. The patient is advised to follow up with primary care for long-term asthma management once symptoms stabilize. Patient was informed and verbally consented to the use of an ambient scribe for clinic note documentation during this visit Orders: Orders SARS-CoV2/FLU/RSV Today J06.9 - Acute upper respiratory infection, unspecified Medications: New fluticasone propionate 50 mcg/actuation administer into each nostril 1 spray intranasal Q12H 16 grams 0RF Refilled cetirizine (All Day Allergy (cetirizine)) 10 mg PO DAILY 90 tabs 1RF Discontinued fluticasone propionate 50 mcg/actuation (Allergy Relief (fluticasone)) administer into each nostril Discontinued Reason: Duplicate 2 sprays intranasal DAILY 48 grams 1RF Coding Level of Care Code Est Pt Level 3 (98323) Diagnoses Viral upper respiratory tract infection J06.9 URI type: unspecified viral URI
[2024-05-31 13:15] VITALS: BP 122/80; PULSE 66; TEMP 36.7; O2SAT 98
== END 2024-05-31 14:10 | disposition home or self-care (01) ==
PROVIDERS: Visit Provider Physician Assistant
DX: J06.9 Acute upper respiratory infection, unspecified (principal)

== ENCOUNTER 2024-09-16 09:32 | Outpatient (AMB) | payer OTHER, SELFPAY ==
[2024-09-16 09:38] VITALS: BP 108/70; PULSE 82; RESP 16; TEMP 36.7; O2SAT 98; BMI 37.6
--- NOTE | 2024-09-16 09:38 | MHC.OFFWIV ---
Intake Vital Signs 09/16/24 09:38 Height 5 ft 4 in Weight 219 lb BMI 37.6 BP 108/70 Blood Pressure Location Lt brachial Position Sitting Respiration 16 Pulse 82 Pulse Source Pulse Oximeter Temp 98.0 F Temp Source Oral Pulse Oximetry (%) 98 Oxygen Delivery Method Room Air Intake Visit Reasons: EP- Season Allergy Intake Note: Pt is here today c/o bilateral eye irritation x1week Patient Tobacco Use Status: Never used Tobacco Allergies penicillin V Allergy (Unknown, Verified 09/16/24 09:53) Unknown Penicillins [PENICILLINS] Allergy (Unknown, Verified 09/16/24 09:53) ANAPHYLAXIS bees Allergy (Unknown, Uncoded 09/16/24 09:53) Anaphylaxis Medication List - Last Reconciled 09/16/24 by Baldemar Meyer MD albuterol sulfate 90 mcg/actuation 2 puffs inhalation Q6H PRN cetirizine (All Day Allergy (cetirizine)) 10 mg PO DAILY fluticasone propionate 50 mcg/actuation 1 spray intranasal Q12H olopatadine 0.7% 1 drp ophthalmic (eye) DAILY PRN 30 days HPI EP- Season Allergy HPI Details Sneezing and tickle in nose, itching irritated and watery eyes No fevers or chills Gets allergies every year around the same time PFSH Surgical History No pertinent past surgical history Family History Mother Myocardial infarction Social History Housing: Apartment Patient Tobacco Use Status: Never used Tobacco e-Cigarette/Vaping Use: Currently Using Second Hand Smoke Exposure: No service: No Current occupational status: unemployed Vision needs: Yes Review of Systems Const Denies chills, Denies fatigue, Denies fever(s), Denies headache(s) and Denies weakness ENT Details: See HPI Denies dizziness and Denies headache(s) Card Denies dyspnea Resp Denies cough, Denies dyspnea, Denies wheezing and Denies other ( shortness of breath) Musc Denies numbness and Denies tingling Neuro Denies dizziness, Denies headache(s), Denies numbness, Denies tingling, Denies paresthesias and Denies weakness Psych Denies anxiety and Denies depression Endo Denies fatigue Aller/Immun Denies wheezing Physical Exam Vital Signs: Last Vital Signs Temp 98.0 F 09/16/24 09:38 Pulse 82 09/16/24 09:38 Resp 16 09/16/24 09:38 BP 108/70 09/16/24 09:38 Pulse Ox 98 09/16/24 09:38 Oxygen Delivery Method Room Air 09/16/24 09:38 BMI result Body Mass Index 37.6 Const General: no acute distress and well developed Nutritional Appearance: well nourished Orientation/consciousness: patient oriented x3 HEENT Other: Nasal congestion with clear discharge Head: Yes normocephalic and Yes atraumatic Eyes Other: Watery and erythematous conjunctivae General: appearance normal, both eyes and all related structures Pupils: Equal, round and reactive pupils present EOM: EOMs intact bilaterally Resp Effort & Inspection: normal respiratory effort Neuro General: patient oriented x3 and gait normal Cranial nerves: Yes Equal, round and reactive pupils present Psych Affect: normal affect Assessment & Plan Assessment & Plan (1) Allergies: Code(s): T78.40XA - Allergy, unspecified, initial encounter (2) Allergic rhinitis: Code(s): J30.9 - Allergic rhinitis, unspecified (3) Allergic conjunctivitis: Code(s): H10.10 - Acute atopic conjunctivitis, unspecified eye Plan Daytime antihistamine Nasal steroid 1st generation antihistamine for up to 1 week in evenings Antihistamine eyedrops Nasal saline Humidified air Hypoallergenic bed covers HEPA filtered air Medications: New olopatadine 0.7% 1 drp ophthalmic (eye) DAILY 30 days PRN 5 mL 0RF itching H10.10 - Acute atopic conjunctivitis, unspecified eye Refilled cetirizine (All Day Allergy (cetirizine)) 10 mg PO DAILY 90 tabs 1RF fluticasone propionate 50 mcg/actuation administer into each nostril 1 spray intranasal Q12H 48 grams 1RF Patient Instructions: Daytime antihistamine Nasal steroid 1st generation antihistamine for up to 1 week in evenings Antihistamine eyedrops Nasal saline Humidified air Hypoallergenic bed covers HEPA filtered air Coding Level of Care Code Est Pt Level 3 (17756) Diagnoses Allergies T78.40XA Allergic rhinitis J30.9 Allergic conjunctivitis H10.10
== END 2024-09-16 11:26 | disposition home or self-care (01) ==
LOC: HO.HMCWIC 09:32
PROVIDERS: Visit Provider Family Medicine
DX: T78.40XA Allergy, unspecified, initial encounter (principal); J30.9 Allergic rhinitis, unspecified; H10.10 Acute atopic conjunctivitis, unspecified eye

== ENCOUNTER → 2024-09-16 09:32 | Outpatient (BNVA) | payer OTHER, SELFPAY | PROVIDERS: Visit Provider Family Medicine | DX: H10.10 Acute atopic conjunctivitis, unspecified eye (principal); T78.40XA Allergy, unspecified, initial encounter | CPT/HCPCS: 99212 ==